=== PATIENT | female | born 1950 | race Caucasian/White ===

== ENCOUNTER 2017-01-24 09:20 | Outpatient (CLI) | payer MEDICARE, BC ==
--- NOTE | 2017-01-25 15:35 | Mammography Report ---
DIGITAL SCREENING MAMMOGRAM: 01/24/2017 CLINICAL INDICATION: A 66-year-old for screening. COMPARISON: 05/2014, 11/2012, 11/2011, 09/2010, 09/2009 TECHNIQUE: Routine CC and MLO projections were obtained of the breasts. FINDINGS: The breasts demonstrate fatty replacement bilaterally. Coarse, typically benign calcifica tions are present. No suspicious masses, clustered microcalcifications, or regions of architectural distortion are identified. IMPRESSION: BENIGN FINDINGS. RECOMMENDATION: Routine annual screening unless otherwise clinically indicated. BIRADS CATEGORY 2 - BENIGN FINDINGS. STANDARD QUALIFYING STATEMENTS 1. This examination was reviewed with the aid of Computer-Aided Detection (CAD). 2. A negative or benign imaging report should not delay biopsy if clinically suspicious findings are present. Consider surgical consultation if warranted. More than 5% of cancers are not identified by i maging. 3. Dense breasts may obscure an underlying neoplasm. JOB #: [id number] EXT JOB #:[id number]
== END 2017-01-24 09:21 | disposition home or self-care (01) ==
LOC: DI.S 09:20
PROVIDERS: ATTEND Physician Assistant
DX: Z12.31 Encounter for screening mammogram for malignant neoplasm of breast (principal); Z80.3 Family history of malignant neoplasm of breast
CPT/HCPCS: 77067

== ENCOUNTER 2018-02-26 11:53 | Outpatient (CLI) | payer MEDICARE, BC ==
--- NOTE | 2018-02-27 08:48 | Mammography Report ---
Reason: SCREENING MAMMO Procedure Date: 02/26/2018 Accession Number: [id number] / [id number] Procedure: MRERITT - Screening Mammo w/Kali CPT Code: FULL RESULT: EXAM: Screening Mammo w/Kali DATE: 02/26/2018 12:29 PM CLINICAL HISTORY: 67-year-old female with family history of breast cancer in the mother in her 70s for screening. TECHNIQUE: Bilateral CC and MLO views were obtained. COMPARISON: 01/24/2017, 05/19/2014, 12/03/2012, 11/23/2011. FINDINGS: The breasts demonstrate diffuse fatty replacement bilaterally. Coarse typically benign calcifications are redemonstrated left breast. No suspicious masses, clustered microcalcifications, or regions of architectural distortion are identified. IMPRESSION: Benign findings RECOMMENDATION: Routine annual screening unless otherwise clinically indicated. BIRADS CATEGORY 2: Benign findings STANDARD QUALIFYING STATEMENTS: 1. This examination was not reviewed with the aid of Computer-Aided Detection (CAD). 2. A negative or benign imaging report should not delay biopsy if clinically suspicious findings are present. Consider surgical consultation if warranted. More than 5% of cancers are not identified by imaging. 3. Dense breasts may obscure an underlying neoplasm. 4. This examination was reviewed with the aid of 3D breast imaging (tomosynthesis).
== END 2018-02-26 11:54 | disposition home or self-care (01) ==
LOC: DI 11:53
PROVIDERS: ATTEND Physician Assistant
DX: Z12.31 Encounter for screening mammogram for malignant neoplasm of breast (principal); Z80.3 Family history of malignant neoplasm of breast
CPT/HCPCS: 77063; 77067

== ENCOUNTER 2018-05-07 08:51 | Outpatient (CLI) | payer MEDICARE, BC ==
--- NOTE | 2018-05-08 10:18 | DEXA Report ---
Reason: ENCOUNTER FOR SCREENING FOR OSTEOPOROSIS Procedure Date: 05/07/2018 Accession Number: [id number] / [id number] Procedure: DEX - Dexa Spine and/or Hip CPT Code: FULL RESULT: EXAM: Dexa Spine and/or Hip DATE: 05/07/2018 9:35 AM CLINICAL HISTORY: ENCOUNTER FOR SCREENING FOR OSTEOPOROSIS TECHNIQUE: Dual energy x-ray absorptiometry (DXA) was performed on a [employer] System. Regions measured are the AP Spine, femoral neck, and if needed forearm. COMPARISON: None. In accordance with the International Society for Clinical Densitometry (ISCD) guidelines, data from previous exams may be reanalyzed using current recommendations and techniques. This is done to allow a more accurate basis for comparison with the current study. FINDINGS: The data for the lumbar spine is as follows: BMD (g/cm/cm) T-SCORE Z-SCORE REGION L1 1.053 -0.6 1.1 L2 1.070 -1.1 0.7 L3 1.134 -0.5 1.2 L4 1.181 -0.2 1.6 TOTAL 1.114 -0.6 1.2 NOTE: All evaluable vertebrae are used for classification The data for the hip is as follows: BMD (g/cm/cm) T-SCORE Z-SCORE REGION Neck 0.782 -1.8 -0.2 TOTAL 0.841 -1.3 0.1 NOTE: The femoral neck or total proximal femur, whichever is lowest, is used for classification. IMPRESSION: THE WHO CLASSIFICATION BASED ON THE INTERNATIONAL REFERENCE STANDARD IS OSTEOPENIA. THE FRACTURE RISK IS INCREASED. RECOMMENDATION: Patients with diagnosis of osteoporosis or osteopenia should have regular bone mineral density assessment. For those eligible for Medicare, routine testing is allowed once every 2 years. Testing frequency can be increased for patients who have rapidly progressing disease or for those who are receiving medical therapy to restore bone mass. COMMENT: World Health Organization (WHO) definitions for osteoporosis and osteopenia: NORMAL BMD: T-score at -1.0 or higher, fracture risk is low OSTEOPENIA BMD: T-score between -1.0 and -2.5, fracture risk is increased. OSTEOPOROSIS BMD: T-score at -2.5 or lower, fracture risk is high. National Osteoporosis Foundation recommends: 1. Obtain adequate dietary calcium (at least 1200 mg per day) and vitamin D (400-800 international units per day). 2. Participate, as appropriate, in regular weightbearing and muscle-strengthening exercise. 3. Avoid tobacco use and reduce alcohol and caffeine intake. 4. For more detailed information see the website at www.NOF.org.
== END 2018-05-07 08:52 | disposition home or self-care (01) ==
LOC: DI 08:51
PROVIDERS: ATTEND Physician Assistant
DX: Z13.820 Encounter for screening for osteoporosis (principal); M85.88 Other specified disorders of bone density and structure, other site; Z78.0 Asymptomatic menopausal state
CPT/HCPCS: 77080

== ENCOUNTER 2018-10-02 12:57 | Outpatient (CLI) | payer MEDICARE, BC ==
--- NOTE | 2018-10-02 13:45 | XRAY Report ---
Reason: R HEEL PAIN X 7 MO, NO IMPROVEMENT Procedure Date: 10/02/2018 Accession Number: [id number] / [id number] Procedure: XR - Calcaneus RT CPT Code: FULL RESULT: EXAM: RIGHT CALCANEUS RADIOGRAPHY EXAM DATE: 10/02/2018 01:28 PM. CLINICAL HISTORY: Right heel pain x 7 months, no improvement. COMPARISON: None. TECHNIQUE: 2 views. FINDINGS: Bones: A mild to moderate inferior calcaneal bone spur is noted. No fracture is detected. No aggressive osseous lesion is seen. Joints: Normal. No subluxations. Soft Tissues: Normal. No soft tissue swelling. IMPRESSION: Inferior calcaneal spurring. RADIA
== END 2018-10-02 12:58 | disposition home or self-care (01) ==
LOC: DI 12:57
PROVIDERS: ATTEND Podiatrist
DX: M77.31 Calcaneal spur, right foot (principal)

== ENCOUNTER 2019-03-25 12:39 | Outpatient (CLI) | payer MEDICARE, BC ==
--- NOTE | 2019-03-26 11:11 | Mammography Report ---
Reason: ANNUAL MAMMOGRAM Procedure Date: 03/25/2019 Accession Number: [id number] / [id number] Procedure: MERRITT - Screening Mammo w/Kali CPT Code: Final Report FULL RESULT: EXAM: Screening Mammo w/Kali DATE: 03/25/2019 3:22 PM CLINICAL HISTORY: Routine screening. Mother with breast cancer. TECHNIQUE: (B) - Bilateral CC and MLO views were obtained. COMPARISON: 02/26/2018, 01/24/2017, 05/19/2014, 12/03/2012 PARENCHYMAL PATTERN: (A) - The breasts demonstrate scattered fibroglandular densities bilaterally. FINDINGS: No significant interval change. There are no suspicious masses, calcifications, or areas of distortion. IMPRESSION: Negative examination. BI-RADS category 1. RECOMMENDATION: (ANNUAL) - Recommend routine annual screening mammography. BI-RADS CATEGORY: (1) - Negative. STANDARD QUALIFYING STATEMENTS: 1. This examination was not reviewed with the aid of Computer-Aided Detection (CAD). 2. A negative or benign imaging report should not preclude biopsy if clinically suspicious findings are present. 3. Dense breasts may obscure an underlying neoplasm. 4. This examination was reviewed with the aid of 3D breast imaging (tomosynthesis).
== END 2019-03-25 12:40 | disposition home or self-care (01) ==
LOC: DI.S 12:39 → DI 12:40
PROVIDERS: ATTEND Physician Assistant
DX: Z12.31 Encounter for screening mammogram for malignant neoplasm of breast (principal); Z80.3 Family history of malignant neoplasm of breast
CPT/HCPCS: 77063; 77067

== ENCOUNTER 2020-04-21 14:03 | Outpatient (CLI) | payer MEDICARE, BC ==
--- OUTSIDE RECORDS SUMMARY | 2020-04-21 14:06 | EXTERNAL MEDICAL SUMMARY RPT | Continuity of Care Document ---
:1950 Demographics Phone Unavailable Preferred Language Unknown Marital Status Unknown Caodaism Affiliation Unknown Race Unknown Ethnic Group Unknown Author Organization [facility] Address [address] [phone] Phone Care Team Providers Name Role Phone Diana Unavailable Unavailable Problems date description facility 2020-04-21 13:45 ENCNTR SCREEN MAMMOGRAM FOR [facility] MALIGNANT NEOPLASM OF BREAST Social History date description facility [id number]
--- NOTE | 2020-04-22 08:01 | Mammography Report ---
BILATERAL DIGITAL SCREENING MAMMOGRAM 3D/2D: 04/21/2020 CLINICAL: Routine screening. Comparison is made to exams dated: 03/25/2019 mammogram, 02/26/2018 mammogram, 01/24/2017 mammogram, 05/19/2014 mammogram, 12/03/2012 mammogram, and 11/23/2011 mammogram - [facility]. T he tissue of both breasts is predominantly fatty. There is a benign calcification in the left breast. No significant masses, calcifications, or other findings are seen in either breast. There has been no significant interval change. IMPRESSION: BENIGN There is no mammographic evidence of malignancy. A 1 year screening mammogram is recommended. This exam was interpreted at Station ID: [id number]. NOTE: For mammograms, a report in lay terms will be sent to the patient. Approximately 15% of breast malignancies will not be visualized mammographically. In the management of a palpable breast mass, a negative mammogram must not discourage biopsy of a clinically suspicious lesion. Electronically Signed By: Elie Meyer M.D. [facility]/penrad:04/21/2020 17:02:43 ACR BI-RADS Category 2: Benign Finding(s) 3342F PARENCHYMAL PATTERN: (F) - The breast(s) demonstrate(s) diffuse fatty replacement. BI-RADS CATEGORY: (2) - 2 RECOMMENDATION: (ANNUAL) - Recommend routine annual screening mammography. [id number] 1 year screening LATERALITY: (B)
== END 2020-04-21 14:04 | disposition home or self-care (01) ==
LOC: DI.N 14:03
DX: Z12.31 Encounter for screening mammogram for malignant neoplasm of breast (principal)
CPT/HCPCS: 77067

== ENCOUNTER 2020-12-28 08:00 | Outpatient (CLI) | payer MEDICARE, BC ==
--- NOTE | 2020-12-28 10:51 | XRAY Report ---
PROCEDURE: Wrist 3 View LT INDICATIONS: CONTUSION OF LEFT WRIST TECHNIQUE: 3 views of the wrist were acquired. COMPARISON: None FINDINGS: Bones: No fractures or dislocations. Osteoarthritic changes along radial aspect of left wrist are se en. No suspicious bony lesions. Scaphoid view: Scaphoid is grossly intact. No evidence of osteonecrosis. Soft tissues: No suspicious soft tissue calcifications. IMPRESSION: No acute left wrist fracture or dislocation. 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 Reviewed by: Brad Pierce MD on 12/28/2020 10:49 AM PDT Approved by: Brad Pierce MD on 12/28/2020 10:49 AM PDT Station ID: [id number]
== END 2020-12-28 23:59 | disposition home or self-care (01) ==
LOC: DI.S 08:00
PROVIDERS: ATTEND Emergency Medicine
DX: M19.032 Primary osteoarthritis, left wrist (principal)

== ENCOUNTER 2021-01-15 14:53 | Outpatient (CLI) | payer MEDICARE, BC ==
--- NOTE | 2021-01-15 16:13 | XRAY Report ---
PROCEDURE: Wrist 3 View LT INDICATIONS: WRIST JOINT PAIN TECHNIQUE: 3 views of the wrist were acquired. COMPARISON: 12/28/2020 FINDINGS: Bones: There is a potential fracture fragment seen along the lateral dorsal aspect of the distal rad ius. There is a remote appearing tiny fracture fragment seen adjacent to the ulnar styloid. No dislocations. No suspicious bony lesions. Degenerative changes are seen, which are worst involvi ng the radial aspect of the carpus. Soft tissues: No suspicious soft tissue calcifications. IMPRESSION: Potential subacute fracture fragment of the dorsal distal radius. Please correlate with patient histo ry and focal tenderness. If it would be helpful for clinical management decision making, please consider a dedicated wrist CT for further evaluation. If there is strong clinical concern for internal derangement of this joint, please consider a dedicat ed MRI for further evaluation (assuming that there is no contraindication). If there is strong clinic al concern for a ligamentous abnormality, this should be performed according to the MRI arthrogram pr otocol. Reviewed by: Brandon Feldre MD on 01/15/2021 3:12 PM JAJA Approved by: Brandon Felder MD on 01/15/2021 3:12 PM JAJA Station ID: [id number]
== END 2021-01-15 14:55 ==
LOC: DI.S 14:53
PROVIDERS: ATTEND Emergency Medicine
DX: M25.532 Pain in left wrist (principal)

== ENCOUNTER 2021-04-26 08:46 | Outpatient (CLI) | payer MEDICARE, BC ==
--- NOTE | 2021-04-27 11:40 | Mammography Report ---
BILATERAL DIGITAL SCREENING MAMMOGRAM 3D/2D: 04/26/2021 CLINICAL: Routine screening. Family history of breast cancer. Comparison is made to exams dated: 03/25/2019 mammogram, 04/21/2020 mammogram, 02/26/2018 mammogram, and 05/19/2014 mammogram - [facility]. There are scattered fibroglandular elements in both breasts. There is a benign calcification in the left breast. No significant masses, calcifications, or other findings are seen in either breast. There has been no significant interval change. IMPRESSION: BENIGN There is no mammographic evidence of malignancy. A 1 year screening mammogram is recommended. This exam was interpreted at Station ID: [id number]. NOTE: For mammograms, a report in lay terms will be sent to the patient. Approximately 15% of breast malignancies will not be visualized mammographically. In the management of a palpable breast mass, a negative mammogram must not discourage biopsy of a clinically suspicious lesion. Electronically Signed By: Antonio rodriguez/diego:04/26/2021 17:24:37 ACR BI-RADS Category 2: Benign Finding(s) 3342F PARENCHYMAL PATTERN: (A) - The breast(s) demonstrate(s) scattered fibroglandular densities. BI-RADS CATEGORY: (2) - 2 RECOMMENDATION: (ANNUAL) - Recommend routine annual screening mammography. [id number] 1 year screening LATERALITY: (B)
== END 2021-04-26 08:47 | disposition home or self-care (01) ==
LOC: DI.S 08:46
PROVIDERS: ATTEND Family Medicine
DX: Z12.31 Encounter for screening mammogram for malignant neoplasm of breast (principal); Z80.3 Family history of malignant neoplasm of breast

== ENCOUNTER 2021-09-16 11:44 | Outpatient (CLI) | payer MEDICARE, BC ==
[2021-09-16 16:01] LABS: BILIRUBIN,URINE NEGATIVE (NEGATIVE); GLUCOSE, URINE (UA) NEGATIVE (NEGATIVE); KETONES,URINE (UA) NEGATIVE (NEGATIVE); LEUKOCYTE ESTERASE, URINE NEGATIVE (NEGATIVE); NITRITE,URINE NEGATIVE (NEGATIVE); OCCULT BLOOD,URINE NEGATIVE (NEGATIVE); PH,URINE 6.5 PH (5.0-7.5); PROTEIN,URINE NEGATIVE (NEGATIVE); UROBILINOGEN,URINE 1 (NORMAL) E.U./dL (NORMAL)
[2021-09-16 16:12] LABS: CLARITY,URINE CLEAR (CLEAR)
[2021-09-16 16:46] LABS: BACTERIA,URINE Few /HPF (None Seen); RBC,URINE 0-5 /HPF (0-5); SQUAMOUS EPITHELIAL CELL,UR FEW Squamous (<= Few); WBC,URINE 0-3 /HPF (0-5)
== END 2021-09-16 11:45 | disposition home or self-care (01) ==
LOC: LAB.S 11:44
PROVIDERS: ATTEND Obstetrics & Gynecology
DX: N39.0 Urinary tract infection, site not specified (principal)
CPT/HCPCS: 81001

== ENCOUNTER 2022-04-17 10:29 | Outpatient (CLI) | payer MEDICARE, BC ==
--- NOTE | 2022-04-20 12:04 | Ultrasound Report ---
LIMITED ULTRASOUND OF RIGHT BREAST: 04/17/2022 CLINICAL: Occasional right breast pain. Comparison is made to exams dated: 04/17/2022 mammogram, 04/26/2021 mammogram, 04/21/2020 mammogram, mammogram, 02/26/2018 mammogram, and 01/24/2017 mammogram - [facility]. Color flow ultrasound of the right breast upper outer quadrant was performed. Neff scale images of t he real-time examination were reviewed. No significant abnormalities were seen sonographically in the right breast. IMPRESSION: BENIGN There is no sonographic evidence of malignancy. There is no abnormality seen in the right breast to correspond with the area of clinical concern and pain indicated by square marker in the posterior depth in the upper outer quadrant, however, recommen d clinical follow up for persistent or worsening symptoms, or development of any clinically suspiciou s findings. A 1 year screening mammogram is recommended. Findings and recommendations were conveyed to the patient during today's evaluation. This exam was interpreted at Station ID: [id number]. Electronically Signed By: Antonio Bishop M.D. aty/:04/19/2022 15:58:41 Ultrasound BI-RADS: 2 Benign BI-RADS CATEGORY: (2) - 2 RECOMMENDATION: (ANNUAL) - Recommend routine annual screening mammography. [id number] 1 year screening LATERALITY: (B)
--- NOTE | 2022-04-20 12:04 | Mammography Report ---
BILATERAL DIGITAL DIAGNOSTIC MAMMOGRAM 3D/2D: 04/17/2022 CLINICAL: Occasional right breast pain. Due for bilateral. Comparison is made to exams dated: 04/26/2021 mammogram, 04/21/2020 mammogram, 03/25/2019 mammogram, 04/28/2017 mammogram, 01/24/2017 mammogram, and 05/19/2014 mammogram - [facility]. There are scattered areas of fibroglandular density in both breasts (category b / 25%-50% glandular t issue). No significant masses, calcifications, or other findings are seen in either breast. IMPRESSION: INCOMPLETE: NEEDS ADDITIONAL IMAGING EVALUATION There is no abnormality seen in the right breast to correspond with the area of clinical concern and pain indicated by square marker in the posterior depth in the upper outer quadrant, however, an ultra sound is recommended for further evaluation and is scheduled to immediately follow this examination. Based on the Tyrer Cuzick model (a risk assessment model) the patients lifetime risk is 9.3% and her 10 year risk is 7.0%. According to the ACR, ACS, and NCCN guidelines, an annual breast MRI exam maira g with mammogram is recommended if the patients lifetime risk is 20% or greater. This exam was interpreted at Station ID: [id number]. NOTE: For mammograms, a report in lay terms will be sent to the patient. Approximately 15% of breast malignancies will not be visualized mammographically. In the management of a palpable breast mass, a negative mammogram must not discourage biopsy of a clinically suspicious lesion. Electronically Signed By: Antonio Bishop M.D. aty/:04/19/2022 15:59:26 ACR BI-RADS Category 0: Incomplete 3340F PARENCHYMAL PATTERN: (A) - The breast(s) demonstrate(s) scattered fibroglandular densities. BI-RADS CATEGORY: (0) - 0 Ultrasound [id number] Immediate follow-up LATERALITY: (R)
== END 2022-04-17 10:30 | disposition home or self-care (01) ==
LOC: DI 10:29
PROVIDERS: ATTEND Nurse Practitioner Family
DX: N64.4 Mastodynia (principal)

== ENCOUNTER 2023-06-20 07:47 | Outpatient (CLI) | payer MEDICARE, BC ==
--- NOTE | 2023-06-21 08:35 | Mammography Report ---
BILATERAL DIGITAL SCREENING MAMMOGRAM 3D/2D: 06/20/2023 CLINICAL: Routine screening. Family history of breast cancer. Comparison is made to exams dated: 04/17/2022 mammogram, 04/26/2021 mammogram, 04/21/2020 mammogram, and 03/25/2019 mammogram - [facility]. There are scattered areas of fibroglandular density in both breasts (category b / 25%-50% glandular t issue). No significant masses, calcifications, or other findings are seen in either breast. There has been no significant interval change. IMPRESSION: NEGATIVE There is no mammographic evidence of malignancy. A 1 year screening mammogram is recommended. Based on the Tyrer Cuzick model (a risk assessment model) the patient's lifetime risk is 8.9% and her 10 year risk is 7.3%. According to the ACR, ACS, and NCCN guidelines, an annual breast MRI exam maira g with mammogram is recommended if the patient's lifetime risk is 20% or greater. This exam was interpreted at Station ID: [id number]. NOTE: For mammograms, a report in lay terms will be sent to the patient. Approximately 15% of breast malignancies will not be visualized mammographically. In the management of a palpable breast mass, a negative mammogram must not discourage biopsy of a clinically suspicious lesion. Electronically Signed By: Elie oglesby/penrad:06/20/2023 20:28:47 ACR BI-RADS Category 1: Negative 3341F PARENCHYMAL PATTERN: (A) - The breast(s) demonstrate(s) scattered fibroglandular densities. BI-RADS CATEGORY: (1) - 1 RECOMMENDATION: (ANNUAL) - Recommend routine annual screening mammography. [id number] 1 year screening LATERALITY: (B)
== END 2023-06-20 07:48 | disposition home or self-care (01) ==
LOC: DI.S 07:47
DX: Z12.31 Encounter for screening mammogram for malignant neoplasm of breast (principal); R92.323 Mammographic fibroglandular density, bilateral breasts; Z80.3 Family history of malignant neoplasm of breast

== ENCOUNTER 2023-08-10 09:28 | Outpatient (CLI) | payer MEDICARE, BC ==
--- NOTE | 2023-08-10 10:51 | DEXA Report ---
PROCEDURE: Dexa Spine and/or Hip INDICATIONS: OSTEOPENIA TECHNIQUE: Dual energy x-ray absorptiometry (DXA) was performed on a [employer] System. Regions measur ed are the AP Spine, femoral neck, and if needed forearm. COMPARISON: None FINDINGS: Lumbar Spine: Bone Mineral Density: 1.051 g/cm/cm,T score: -1.1. Left Femoral Neck: Bone Mineral Density: 0.735 g/cm/cm, T score: -2.2. Left Hip: Bone Mineral Density: 0.741 g/cm/cm,T score: -2.1. (T score greater or equal to -1.0: NORMAL) (T score from -1.1 to -2.4: OSTEOPENIA) (T score less than or equal to -2.5 to: OSTEOPOROSIS) Impression: By WHO criteria, this patient has low bone density (osteopenia). Patients with diagnosis of osteoporosis or osteopenia should have regular bone mineral density assess ment. For those eligible for Medicare, routine testing is allowed once every 2 years. Testing frequ ency can be increased for patients who have rapidly progressing disease or for those who are receivin g medical therapy to restore bone mass. Reviewed by: Brijesh Torres MD on 08/10/2023 10:50 AM PDT Approved by: Brijesh Torres MD on 08/10/2023 10:50 AM PDT Station ID: [id number]
== END 2023-08-10 09:29 | disposition home or self-care (01) ==
LOC: DI 09:28
PROVIDERS: ATTEND Nurse Practitioner Family
DX: M85.89 Other specified disorders of bone density and structure, multiple sites (principal)